=== PATIENT | female | born 2000 | race African-American/Black ===

== ENCOUNTER 2020-03-08 10:02 | Emergency (ER) | payer MEDICAID ==
[2020-03-08 10:09] VITALS: BP 137/78
--- NOTE | 2020-03-08 10:23 | ER Document Report ---
ED Medical Screen (RME) - General Chief Complaint: Nausea Stated Complaint: NAUSEA Time Seen by Provider: 03/08/20 10:13 Primary Care Provider: ERICKA NESS MD [Primary Care Provider] - Follow up as needed TRAVEL OUTSIDE OF THE [place] IN LAST 30 DAYS: No - HPI Notes: 03/08/20 10:20 27-year-old female presents to the emergency room today for nausea, epigastric abdominal pain, fatigue bloated, she states this has been occurring off and on for the last 3 weeks. Last menstrual cycle February 09, 2020 G1, P0, and not on any control, having unprotected sexual intercourse. Denies any vaginal bleeding, chest pain shortness of breath, fevers or chills. Took a test 1 week ago and it was negative. I have greeted and performed a rapid initial assessment of this patient. A comprehensive ED assessment and evaluation of the patient, analysis of test results and completion of the medical decision making process will be conducted by additional ED providers. PHYSICAL EXAMINATION: GENERAL: Well-appearing, well-nourished and in no acute distress. CV: s1, s2 regular LUNGS: No respiratory distress abd: LUQ, LLQ abd pain, no cva tenderness bilaterally Musculoskeletal: Normal range of motion NEUROLOGICAL: Normal speech, normal gait. SKIN: Warm, Dry, normal turgor, no rashes or lesions noted. - Related Data Allergies/Adverse Reactions: latex Allergy (Verified 03/08/20 10:11) peanut [Peanut] Allergy (Verified 03/08/20 10:11) Past Medical History Pulmonary Medical History: Reports: Hx Asthma - seasonal allergies - Immunizations Immunizations up to date: Yes Hx Diphtheria, Pertussis, Tetanus Vaccination: Yes Physical Exam - Vital signs Vitals: Temp Pulse Resp BP Pulse Ox 97.8 F 104 H 16 137/78 H 99 03/08/20 10:08 03/08/20 10:08 03/08/20 10:08 03/08/20 10:08 03/08/20 10:08 Course - Vital Signs Vital signs: Temp Pulse Resp BP Pulse Ox 97.8 F 104 H 16 137/78 H 99 03/08/20 10:08 03/08/20 10:08 03/08/20 10:08 03/08/20 10:08 03/08/20 10:08 Doctor's Discharge - Discharge Referrals: ERICKA NESS MD [Primary Care Provider] - Follow up as needed
[2020-03-08 11:01] LABS: ABSOLUTE BASOPHILS # (AUTO) 0.1 10^3/uL (0.0-0.2); ABSOLUTE LYMPHOCYTES (AUTO) 1.7 10^3/uL (0.5-4.7); ABSOLUTE MONOCYTES (AUTO) 0.4 10^3/uL (0.1-1.4); ABSOLUTE NEUT (AUTO) 5.3 10^3/uL (1.7-8.2); BASOPHILS % (AUTO) 0.8 % (0-2); EOSINOPHILS % (AUTO) 0.6 % (0-6); HEMATOCRIT 40.3 % (36.0-47.0); HEMOGLOBIN 13.4 g/dL (12.0-15.5); LYMPHOCYTES % (AUTO) 22.8 % (13-45); MEAN CORPUSCULAR HEMOGLOBIN 27.8 pg (27.0-33.4); MEAN CORPUSCULAR HGB CONC 33.3 g/dL (32.0-36.0); MEAN CORPUSCULAR VOLUME 84 fl (80-97); MONOCYTES % (AUTO) 5.2 % (3-13); PLATELET COUNT 106 10^3/uL (150-450); RED BLOOD COUNT 4.83 10^6/uL (3.72-5.28); RED CELL DISTRIBUTION WIDTH 13.8 % (11.5-14.0); SEGMENTED NEUTROPHILS % (AUTO) 70.6 % (42-78); TOTAL CELLS COUNTED % (AUTO) 100 %; WHITE BLOOD COUNT 7.5 10^3/uL (4.0-10.5)
[2020-03-08 11:14] LABS: APPEARANCE,URINE CLEAR; BILIRUBIN,URINE NEGATIVE (NEGATIVE); COLOR,URINE YELLOW; GLUCOSE, URINE NEGATIVE (NEGATIVE); KETONES,URINE NEGATIVE (NEGATIVE); LEUKOCYTE ESTERASE,URINE NEGATIVE (NEGATIVE); NITRITE,URINE NEGATIVE (NEGATIVE); PROTEIN,URINE NEGATIVE (NEGATIVE); URINE SPECIFIC GRAVITY 1.021; UROBILINOGEN,URINE NEGATIVE mg/dL (<2.0)
[2020-03-08 11:26] LABS: ALBUMIN 4.6 g/dL (3.5-5.0); ALKALINE PHOSPHATASE 86 U/L (38-126); ANION GAP 13 (5-19); ASPARTATE AMINO TRANSFERASE 23 U/L (14-36); BILIRUBIN,DIRECT 0.1 mg/dL (0.0-0.4); BILIRUBIN,TOTAL 0.5 mg/dL (0.2-1.3); BLOOD UREA NITROGEN 12 mg/dL (7-20); CALCIUM 10.1 mg/dL (8.4-10.2); CARBON DIOXIDE 22 mmol/L (22-30); CHLORIDE 104 mmol/L (98-107); GLUCOSE 101 mg/dL (75-110); POTASSIUM 4.2 mmol/L (3.6-5.0); TOTAL PROTEIN 8.5 g/dL (6.3-8.2)
--- NOTE | 2020-03-08 14:04 | ER Document Report ---
ED General - General Chief Complaint: Lower Abdominal Pain Stated Complaint: NAUSEA Time Seen by Provider: 03/08/20 10:13 Primary Care Provider: ERICKA NESS MD [Primary Care Provider] - Follow up as needed Mode of Arrival: Ambulatory Information source: Patient TRAVEL OUTSIDE OF THE [place] IN LAST 30 DAYS: No - HPI Notes: Patient presents with epigastric pain and left side abdominal pain. Is been intermittent for the last 3 weeks. Is been crampy in nature. Mild to moderate in intensity. Nothing makes it better or worse. No significant radiation. She also had some bloating and she states she had a period that was heavier than normal 3 weeks ago. She states she is concerned that she is . - Related Data Allergies/Adverse Reactions: latex Allergy (Verified 03/08/20 10:11) peanut [Peanut] Allergy (Verified 03/08/20 10:11) Past Medical History - General Information source: Patient - Social History Smoking Status: Never Smoker Chew tobacco use (# tins/day): No Frequency of alcohol use: None Drug Abuse: None Family History: Reviewed & Not Pertinent Patient has homicidal ideation: No Pulmonary Medical History: Reports: Hx Asthma - seasonal allergies - Immunizations Immunizations up to date: Yes Hx Diphtheria, Pertussis, Tetanus Vaccination: Yes Review of Systems - Review of Systems Constitutional: denies: Chills, Fever Cardiovascular: denies: Chest pain, Palpitations Respiratory: denies: Cough, Short of breath Physical Exam - Vital signs Vitals: Temp Pulse Resp BP Pulse Ox 97.8 F 104 H 16 137/78 H 99 03/08/20 10:08 03/08/20 10:08 03/08/20 10:08 03/08/20 10:08 03/08/20 10:08 Interpretation: Tachycardic - mild, not tachycardic on my exam - General General appearance: Appears well, Alert - HEENT Head: Normocephalic, Atraumatic Eyes: Normal Pupils: PERRL - Respiratory Respiratory status: No respiratory distress Chest status: Nontender Breath sounds: Normal Chest palpation: Normal - Cardiovascular Rhythm: Regular Heart sounds: Normal auscultation Murmur: No - Abdominal Inspection: Normal Distension: No distension Bowel sounds: Normal Tenderness: Nontender Organomegaly: No organomegaly - Back Back: Normal, Nontender - Extremities General upper extremity: Normal inspection, Nontender, Normal color, Normal ROM, Normal temperature General lower extremity: Normal inspection, Nontender, Normal color, Normal ROM, Normal temperature, Normal weight bearing. No: Grace's sign - Neurological Neuro grossly intact: Yes Cognition: Normal Orientation: AAOx4 [place] Coma Scale Eye Opening: Spontaneous Rickie Coma Scale Verbal: Oriented Rickie Coma Scale Motor: Obeys Commands Rickie Coma Scale Total: 15 Speech: Normal Motor strength normal: LUE, RUE, LLE, RLE Sensory: Normal - Psychological Associated symptoms: Normal affect, Normal mood - Skin Skin Temperature: Warm Skin Moisture: Dry Skin Color: Normal Course - Re-evaluation Re-evalutation: 03/08/20 14:03 Patient presents with abdominal pain and a primary concern of whether or not she was . Patient is not and deemed stable for outpatient follow- up - Vital Signs Vital signs: Temp Pulse Resp BP Pulse Ox 97.8 F 104 H 16 137/78 H 99 03/08/20 10:08 03/08/20 10:08 03/08/20 10:08 03/08/20 10:08 03/08/20 10:08 - Laboratory Result Diagrams: 03/08/20 10:25 03/08/20 10:25 Laboratory results interpreted by me: 03/08/20 03/08/20 03/08/20 10:25 10:25 10:25 Plt Count 106 L Total Protein 8.5 H Urine Ascorbic Acid 20 H - Diagnostic Test Radiology reviewed: Image reviewed, Reports reviewed Discharge - Discharge Clinical Impression: Abdominal pain Qualifiers: Abdominal location: left upper quadrant Qualified Code(s): R10.12 - Left upper quadrant pain Condition: Stable Disposition: HOME, SELF-CARE Instructions: Abdominal Pain ([facility]) Forms: Return to Work Referrals: ERICKA NESS MD [Primary Care Provider] - Follow up as needed
--- NOTE | 2020-03-08 16:18 | RADIOLOGY REPORT (SQ) ---
EXAM DESCRIPTION: U/S ABDOMEN LIMITED W/O DOP IMAGES COMPLETED DATE/TIME: 03/08/2020 10:56 am REASON FOR STUDY: LUQ, LLQ abd pain x 1 week intermittently COMPARISON: None. TECHNIQUE: Dynamic and static grayscale images acquired of the abdomen and recorded on PACS. Additio nal selected color Doppler and spectral images recorded. LIMITATIONS: None. FINDINGS: LEFT KIDNEY: The left kidney measures 10.2 x 5.7 cm, normal size. Normal echogenicity. N o solid or suspicious masses. No hydronephrosis. No calcifications. SPLEEN: The spleen measures 11.4 cm in length, normal size. No mass. Normal echotexture. PERITONE AL AND LEFT PLEURAL SPACE: No ascites or effusions. OTHER: No other significant findings. IMPRESSION: 1. EXAMINATION OF THE LEFT UPPER QUADRANT IS UNREMARKABLE SONOGRAPHICALLY. TECHNICAL DOCUMENTATION: JOB ID: [id number] 2010 [employer]- All Rights Reserved Reading location - IP/workstation name: [email or web address]
== END 2020-03-08 14:25 | disposition home or self-care (01) ==
LOC: ER 10:02
DX: R10.12 Left upper quadrant pain (principal); R10.32 Left lower quadrant pain; R10.13 Epigastric pain; J45.909 Unspecified asthma, uncomplicated; Z32.02 Encounter for pregnancy test, result negative; Z91.040 Latex allergy status; Z91.010 Allergy to peanuts
CPT/HCPCS: 36415; 76705; 80053; 81001; 84702; 85025; 99284